=== PATIENT | female | born 1995 | race Caucasian/White ===

== ENCOUNTER → 2018-04-17 | Outpatient (CLI) | payer BC ==
[~2018-04-17] MED LIST: EPI PEN; PRD20T PO
--- NOTE | 2018-04-17 15:30 | Diagnostic Imaging Report ---
INDICATION: Facial injury. Pain. FINDINGS: Two views of the facial bones show no fracture or other acute bony abnormality. The sinuses are well aerated. IMPRESSION: Normal facial bones. Dictated by: Dictated on workstation # [id number]
== END ==
LOC: RAD 14:54
PROVIDERS: ATTEND Nurse Practitioner Family
DX: S00.83XA Contusion of other part of head, initial encounter (principal)
CPT/HCPCS: 70140